=== PATIENT | female | born 1995 | race Caucasian/White ===

== ENCOUNTER → 2025-01-21 15:31 | Outpatient (CLI) | payer OTHER, SELFPAY ==
[2025-01-21 16:26] LABS: Add Manual Diff / Slide Review NO; Hematocrit 37.0 % (36-46); Hemoglobin 13.0 g/dL (12.0-16.0); Lymphocytes Absolute Auto 2300 /uL (1100-4500); Mean Corpuscular HGB Conc 35.1 % (30-36); Mean Corpuscular Hemoglobin 29.9 PG (26-34); Mean Corpuscular Volume 85.3 fL (80-100); Platelet Count 348 X10^3/uL (150-400)
[2025-01-21 16:39] LABS: Natera Collection Specimen Collected
[2025-01-21 18:48] LABS: Urine N gonorrhoeae NOT DETECTED
[2025-01-21 18:55] LABS: Urine Chlamydia NOT DETECTED
[2025-01-22 16:31] LABS: Hepatitis B Surface Antigen NEGATIVE s/c (NEGATIVE)
[2025-01-22 16:37] LABS: HIV 1 & 2 Ab/Ag 4th Gen Combo NEGATIVE (NEGATIVE); Hep C Virus Ab w/Reflex Quant NEGATIVE s/c (NEGATIVE)
== END ==
PROVIDERS: Referring Provider Obstetrics & Gynecology; Visit Provider Obstetrics & Gynecology
DX: O09.899 Supervision of other high risk pregnancies, unspecified trimester (principal); Z3A.10 10 weeks gestation of pregnancy
CPT/HCPCS: 36415; 80055; 86787; 86803; 86850; 86900; 86901; 87389; 87491; 87591

== ENCOUNTER → 2025-03-11 14:07 | Outpatient (CLI) | payer OTHER, SELFPAY ==
[2025-03-14 15:12] LABS: Gest Age on Col Date 17.9 weeks (.); OSBR Risk 1IN 6499 (.)
== END ==
PROVIDERS: Referring Provider Obstetrics & Gynecology; Visit Provider Obstetrics & Gynecology
DX: Z36.0 Encounter for antenatal screening for chromosomal anomalies (principal)
CPT/HCPCS: 36415; 82105

== ENCOUNTER → 2025-04-01 11:56 | Outpatient (CLI) | payer OTHER, SELFPAY ==
--- NOTE | 2025-04-01 11:57 | DI.US.S_ITS ---
PROCEDURE: US OB >= 14 WEEKS FETUS INDICATIONS: ANATOMY OUTSIDE/PRIOR DATING DATA: Last menstrual period (LMP): 11/06/2024. LMP-based estimated date of delivery (KADEN): quispe 26. First dating scan (date and location): 01/21/2025 at [facility]. Estimated date of delivery (KADEN) from first dating scan: 11 weeks 6 days. The calculations are made using the working LMP KADEN of 08/13/2025. TECHNIQUE: Real-time scanning was performed of the fetus, with image documentation and biometric measurements. Endovaginal scanning: Not applicable COMPARISON: None. FINDINGS: General: A single living intrauterine gestation is present. Presentation: Variable. Placenta: Placental position is posterior with fundal wrap , without previa. Amniotic fluid index: 14.2 cm, normal range is 5-24 cm. Single deepest vertical pocket is 4.1 cm. heart rate: 133 beats per minute. Maternal cervical canal: 4.6 cm long. Normal lower limit is 2.5 cm. biometrics: Biparietal diameter: 5.6 cm, 23 weeks 1 day Head circumference: 20 cm, 22 weeks 1 day Abdominal circumference: 18 cm, 22 weeks 6 days Femur length: 3.6 cm, 21 weeks 3 days Clinically estimated gestational age: 20 weeks 6 days Composite gestational age from present scan: 22 weeks 3 days Estimated weight and percentile: 490 g, 98 percentile Anatomic survey: Neuro: Ventricles are non-dilated at less than 10 mm. Cisterna magna is normal at 3-11 mm. Cerebellum is normal in size and morphology. Nuchal skin fold: Normal at less than 6 mm between 14-21 weeks gestational age. Face: Nose and lips, facial profile are normal. Spine: No evidence for spina bifida. Heart: 4-chambered heart is present, with echogenic internal focus versus echogenic chordae tendinae. Diaphragm: Diaphragm is intact. Stomach: Left-sided stomach is present. Kidneys: No hydronephrosis. Normal is less than 5 mm in 2nd trimester, less than 7 mm in 3rd trimester. Cord: 3-vessel cord has orthotopic insertion. Bladder: Normal in size. Extremities: All 4 extremities identified. IMPRESSION: Single living intrauterine gestation with at 20 weeks 6 days. macrosomia with estimated weight of the 98th percentile. Echogenic intracardiac focus versus possible echogenic chordae tendineae. Recommend close interval follow-up ultrasound for further assessment. We strive to produce accurate, complete, and clear reports of imaging services. To assist us in improving patient care, this report was composed using standard report templates and voice recognition software. Therefore, it may contain abnormal punctuation, insertions and/or omissions. Occasional wrong-word or sound-alike substitutions may occur. Though we review the report and make efforts to correct it, we do recommend that the report be read carefully in proper context to recognize any text inaccuracies. Dictated by: Casey Garcia M.D. on 04/01/2025 at 15:50 Approved by: Casey Garcia M.D. on 04/01/2025 at 16:02
== END ==
LOC: US 11:56
PROVIDERS: Referring Provider Obstetrics & Gynecology; Visit Provider Obstetrics & Gynecology
DX: Z36.0 Encounter for antenatal screening for chromosomal anomalies (principal); Z3A.22 22 weeks gestation of pregnancy
CPT/HCPCS: 76811

== ENCOUNTER → 2025-05-03 10:42 | Outpatient (CLI) | payer OTHER, SELFPAY ==
--- NOTE | 2025-05-03 10:43 | DI.US.S_ITS ---
PROCEDURE: US OB FOLLOW UP INDICATIONS: ECHOGENIC INTRACARDIAC FOCI/LARGE FOR GESTATIONAL AGE OUTSIDE/PRIOR DATING DATA: Working KAEDN is 08/13/2025. TECHNIQUE: Real-time scanning was performed of the fetus, with image documentation and biometric measurements. Endovaginal scanning: Not performed. COMPARISON: [facility], OB >= 14 WEEKS FETUS, 04/01/2025, 12:31. FINDINGS: General: A single living intrauterine gestation is present. Presentation: Vertex Placenta: Placental position is posterior fundal, without previa. Amniotic fluid index: 21.9 cm, normal range is 5-24 cm. Single deepest vertical pocket is 7.1 cm. heart rate: 173 beats per minute. Maternal cervical canal: 5.2 cm long. Normal lower limit is 2.5 cm. biometrics: Biparietal diameter: 7.1 cm, 28 weeks 4 days, greater than 99th percentile Head circumference: 25.3 cm, 27 weeks 3 days, 90th percentile Abdominal circumference: 22.6 cm, 27 weeks 0 days, 85th percentile Femur length: 4.7 cm, 25 weeks 6 days, 47th percentile Clinically estimated gestational age: 25 weeks 3 days Composite gestational age from present scan: 27 weeks 2 days Estimated weight and percentile: 973 g, 90th percentile Other: Not applicable. IMPRESSION: 1. Single live intrauterine . 2. Estimated weight at the 90th percentile for gestational age. 3. Echogenic intracardiac focus again noted in the left ventricle, which is a nonspecific finding in isolation. Approved by: Freddy Cisneros M.D. on 05/03/2025 at 16:57
== END ==
LOC: US 10:42
PROVIDERS: Referring Provider Obstetrics & Gynecology; Visit Provider Obstetrics & Gynecology
DX: Z34.92 Encounter for supervision of normal pregnancy, unspecified, second trimester (principal); Z3A.27 27 weeks gestation of pregnancy
CPT/HCPCS: 76816